=== PATIENT | female | born 2000 | race Caucasian/White ===

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

== ENCOUNTER → 2018-08-31 14:05 | Observation (INO) ==
[2018-08-31 12:56] LABS: Bilirubin,Urine Negative (Negative); Blood,Urine Trace (Negative); Clarity,Urine Cloudy (Clear); Color,Urine Yellow (Yellow); Glucose,Urine (UA) Normal (Normal); Ketones,Urine 15 mg/dL (Negative); Leukocyte Esterase,Urine Moderate (Negative); Nitrite,Urine Negative (Negative); Protein,Urine Negative (Neg-Trace); Specific Gravity,Urine 1.017 (1.010-1.025); Urobilinogen,Urine Normal (Normal)
[2018-08-31 12:58] LABS: Bacteria,Urine Few per hpf (None-Few); Hyaline Casts,Urine Few per lpf (None-Few); Squamous Epithelial Cell,Urine Many per lpf (None-Few); WBC,Urine 30-50 per hpf (0-3)
--- NOTE | 2018-08-31 13:21 | OB/GYN History & Physical ---
Date of Encounter: 08/31/18 Time of Encounter: 13:18 Assessment and Plan (1) 25 weeks gestation of Current visit: Yes Status: Acute (2) premature rupture of membranes (PPROM) with unknown onset of labor Current visit: Yes Status: Acute History of Present Illness Chief complaint: leaking HPI: Ms. Kaminski is a 18 year old female 1 who presents to labor and delivery complaining of leakage of fluid beginning last night. She denies significant for her evette. She states that she had a little bit of leakage and went to bed. This a.m. she continued to leak came in for examination. She is currently 25 weeks and 1 day. On speculum examination she did have fluid in the vaginal vault. She was nitrazine positive and fern positive. This patient was recently admitted into [facility] for labor. She had hourglassing membranes at that time. This did resolve and she was sent home at 23 weeks. She was given steroids at that time. She has been doing well since. She denies cramping or evette. She has allergies to Benadryl. She is currently on vitamins. Chronic medical conditions include type 2 diabetes. Surgical history includes a laparoscopic appendectomy. Socially she denies tobacco, alcohol, illicit drug use. Family history significant for diabetes and heart disease. On presentation speculum exam shows cervix to be approximately 2 cm. Sterile vaginal exam was not performed. heart rate in 140s 150s. No contractions noted on the monitor. I spoke to labor and delivery at [facility]. Dr. Harrison accepted transfer. He did not wish any antibiotic starting this patient was not laboring and they would rather keep track of the number of antibiotics patient gets. She has previously had steroids at 20-23 weeks when she was admitted into [facility] with hourglassing membranes. Past Med Surg Social Fam HX - Past Medical History Medical history: diabetes Additional medical history: DM Type II Psychiatric history: no psych history - Past Surgical History Surgical History: appendectomy - Social History Smoking Status: Never smoker Smokeless Tobacco Status: No Alcohol use: none Drug use: none - Family History Maternal Grandmother Family Member Ethnicity: Non- Living Status: Hx Family Endocrine Disorder: Yes Obstetrical History - Pregnancies : 1 Medications and Allergies Insulin LISPRO [Admelog Solostar] 12 units SQ BID 08/31/18 [History] Novolin R 14 units SQ BID 08/31/18 [History] Caplet 1 tab PO DAILY 08/31/18 [History] Allergy/AdvReac Type Severity Reaction Status Date / Time diphenhydramine Allergy Numbness Verified 06/20/18 09:21 [From Benadryl] Review of System OB All systems PM: reviewed and no additional remarkable complaints except as stated Exam - Constitutional Constitutional: well developed, well nourished, no acute distress, average body habitus - HEENT HEENT: EOMI, PERRL - Neck Neck exam: full ROM - Lungs Respiratory exam: CTAB - Cardiovascular Cardiovascular exam: RRR - Abdomen Abdomen: Present: bowel sounds normal, gravid, non tender - Extremities Extremities exam: full ROM - Vagina Vagina: Present: normal moisture - Cervix Dilation: 2 - Uterus Uterus exam: Present: normal size Results Abnormal lab results Cloudy (Clear) A 08/31/18 12:40 15 mg/dL (Negative) H 08/31/18 12:40 Trace (Negative) H 08/31/18 12:40 Ur Leukocyte Esterase Moderate (Negative) H 08/31/18 12:40 5-15 per hpf (0-3) H 08/31/18 12:40 30-50 per hpf (0-3) H 08/31/18 12:40 Ur Squamous Epith Cells Many per lpf (None-Few) H 08/31/18 12:40 Ur Culture Indicated? YES (NO) A 08/31/18 12:40 All other labs normal. - VTE Reasons for not Prescribing Prophylaxis: Treatment not Indicated - Low risk for VTE
[2018-08-31 13:54] LABS: Candida DNA Not Detected (Not Detect); Gardnerella DNA Not Detected (Not Detect); Trichomonas DNA Not Detected (Not Detect)
[~2018-08-31 14:05] MED LIST: 0.9 % Sodium Chloride 1,000 ML ONE; Lidocaine -MPF 1% 2 ML VIAL ONE
[2018-08-31 14:25] LABS: Amphetamine Screen,Urine Negative ng/mL (Cutoff=1000); Barbiturate Screen,Urine Negative ng/mL (Cutoff=200); Benzodiazepines Screen,Urine Negative ng/mL (Cutoff=200); Cannabinoid Screen,Urine Negative ng/mL (Cutoff = 50); Cocaine Screen,Urine Negative ng/mL (Cutoff= 300); Opiate Screen,Urine Negative ng/mL (Cutoff=300); Phencyclidine Screen,Urine Negative ng/mL (Cutoff=25)
== END | disposition critical access hospital (66) ==
LOC: 1NENULAB
PROVIDERS: ADMIT Registered Nurse; ATTEND Registered Nurse

== ENCOUNTER → 2020-08-12 22:22 | Observation (INO) ==
[2020-08-12 21:08] VITALS: BP 136/82
[2020-08-12 21:25] LABS: Amorphous Sediment,Urine Few per hpf (None-Few); Bacteria,Urine Few per hpf (None-Few); Bilirubin,Urine Negative (Negative); Blood,Urine Small (Negative); Clarity,Urine Clear (Clear); Color,Urine Light-Yellow (Yellow); Glucose,Urine (UA) 150 mg/dL (Normal); Ketones,Urine Negative (Negative); Leukocyte Esterase,Urine Trace (Negative); Mucus,Urine Few per lpf (None-Few); Nitrite,Urine Negative (Negative); Protein,Urine Trace mg/dL (Neg-Trace); RBC,Urine 50-100 per hpf (0-3); Squamous Epithelial Cell,Urine Few per hpf (None-Few); Urobilinogen,Urine Normal (Normal); WBC,Urine 0-3 per hpf (0-3)
== END | disposition home or self-care (01) ==
LOC: 1NENULAB
PROVIDERS: ADMIT Obstetrics & Gynecology; ATTEND Obstetrics & Gynecology

== ENCOUNTER 2020-09-20 17:26 | Observation (INO) ==
[2020-09-20 19:45] LABS: Bacteria,Urine Few per hpf (None-Few); Bilirubin,Urine Negative (Negative); Blood,Urine Small (Negative); Calcium Oxalate Crystals,Urine Present per hpf; Clarity,Urine Turbid (Clear); Color,Urine Yellow (Yellow); Glucose,Urine (UA) Normal (Normal); Ketones,Urine 150 mg/dL (Negative); Leukocyte Esterase,Urine Small (Negative); Mucus,Urine Few per lpf (None-Few); Nitrite,Urine Negative (Negative); PH,Urine 6.5 pH Units (5.0-8.0); Protein,Urine Trace mg/dL (Neg-Trace); RBC,Urine 50-100 per hpf (0-3); Specific Gravity,Urine 1.019 (1.010-1.025); Squamous Epithelial Cell,Urine Few per hpf (None-Few); Urobilinogen,Urine Normal (Normal)
[2020-09-20] MEDS ORDERED: Betamethasone Acet/SodPhos 30 MG/5 ML VIAL IM SCH (19:45)
== END 2020-09-20 19:55 | disposition home or self-care (01) ==
LOC: 1NENULAB
PROVIDERS: ADMIT Advanced Practice Midwife; ATTEND Advanced Practice Midwife

== ENCOUNTER 2020-09-24 13:02 | Observation (INO) ==
[2020-09-24 14:21] LABS: Bacteria,Urine Few per hpf (None-Few); Bilirubin,Urine Negative (Negative); Blood,Urine Small (Negative); Calcium Oxalate Crystals,Urine Present per hpf; Clarity,Urine Turbid (Clear); Color,Urine Yellow (Yellow); Glucose,Urine (UA) 50 mg/dL (Normal); Ketones,Urine Negative (Negative); Leukocyte Esterase,Urine Moderate (Negative); Mucus,Urine Few per lpf (None-Few); Nitrite,Urine Negative (Negative); PH,Urine 6.5 pH Units (5.0-8.0); Protein,Urine 30 mg/dL (Neg-Trace); RBC,Urine 30-50 per hpf (0-3); Specific Gravity,Urine 1.024 (1.010-1.025); Squamous Epithelial Cell,Urine Few per hpf (None-Few); Urobilinogen,Urine Normal (Normal)
[2020-09-24 15:20] LABS: Candida DNA Not Detected (Not Detect); Gardnerella DNA Not Detected (Not Detect); Trichomonas DNA Not Detected (Not Detect)
== END 2020-09-24 17:54 | disposition home or self-care (01) ==
LOC: 1NENULAB
PROVIDERS: ADMIT Registered Nurse; ATTEND Registered Nurse

== ENCOUNTER 2020-10-08 12:00 | Inpatient (IN) ==
[2020-10-08] MEDS ORDERED: Famotidine 20 MG/2 ML VIAL IVP PRN (13:59)
[2020-10-08] MEDS ORDERED: Metoclopramide 10 MG/2 ML VIAL IVP PRN (13:59)
[2020-10-08] MEDS ORDERED: Naloxone 0.4 MG/ML INJ IVP PRN (13:59)
[2020-10-08] MEDS ORDERED: Ondansetron 4 MG/2 ML VIAL IVP PRN (13:59)
[2020-10-08] MEDS ORDERED: Lidocaine 1% 20 ML MDV ID PRN (13:59)
[2020-10-08] MEDS ORDERED: *HR* Nalbuphine 10 MG/ML AMPUL IV PRN (13:59)
[2020-10-08] MEDS ORDERED: Azithromycin 500 MG in 0.9 % Sodium Chloride 250 ML IVPB PRN (13:59)
[2020-10-08] MEDS ORDERED: Ringers Solution, Lactated 1,000 ML IVC SCH (14:00)
[2020-10-08] MEDS ORDERED: Oxytocin 20 units/ LR 1000 mL 20 UNIT/1,000 ML BAG IVC SCH (14:00)
[2020-10-08] MEDS ORDERED: 0.9 % Sodium Chloride 1,000 ML ONE ×2 (14:35→22:33)
[2020-10-08] MEDS ORDERED: 0.9 % Sodium Chloride 1,000 ML IVC ONE (14:35)
[2020-10-08 14:51] LABS: Basophils % 0.2 %; Eosinophils # 0.1 K/mcL (0.0-0.6); Eosinophils % 0.7 %; Hematocrit 38.2 % (35.3-44.9); Immature Granulocytes % 0.4 % (0-4); Lymphocytes # 1.6 K/mcL (0.6-4.6); Lymphocytes % 15.9 %; Mean Corpuscular Hemoglobin 25.7 pg (28.0-33.3); Mean Corpuscular Volume 75.5 fL (83.0-100.0); Mean Platelet Volume 10.9 fL (9.4-12.4); Monocytes # 0.7 K/mcL (0.0-1.3); Monocytes % 7.4 %; Neutrophils # 7.4 K/mcL (1.6-8.9); Platelet Count 199 K/mcL (140-400); Red Blood Count 5.06 M/mcL (3.82-4.97); Red Cell Distribution Width 14.4 % (11.5-14.5); Segmented Neutrophils % 75.4 %; White Blood Count 9.8 K/mcL (4.3-11.1)
[2020-10-08 15:00] LABS: Amphetamine Screen,Urine Negative ng/mL (Cutoff=1000); Barbiturate Screen,Urine Negative ng/mL (Cutoff=200); Benzodiazepines Screen,Urine Negative ng/mL (Cutoff=200); Cannabinoid Screen,Urine Negative ng/mL (Cutoff = 50); Cocaine Screen,Urine Negative ng/mL (Cutoff= 300); Opiate Screen,Urine Negative ng/mL (Cutoff=300); Phencyclidine Screen,Urine Negative ng/mL (Cutoff=25)
[2020-10-08] MEDS ORDERED: 0.9 % Sodium Chloride 1,000 ML IVC SCH (15:30)
[2020-10-08 15:42] LABS: Glucose 119 mg/dL (70-105)
[2020-10-08 16:44] LABS: Alanine Aminotransferase 9 Units/L (7-52); Aspartate Amino Transferase 12 Units/L (13-39); BUN/Creatinine Ratio 24 (6-26); Blood Urea Nitrogen 11 mg/dL (6-20); Lactate Dehydrogenase 136 Units/L (140-271); Uric Acid 3.9 mg/dL (2.3-7.6); eGFR For African Americans > 60 (> 60); eGFR For Non-African Americans > 60 (> 60)
[2020-10-08 17:03] LABS: Protein/Creatinine Ratio,Urine 0.3 mg/mg (0.00-0.20)
[2020-10-08] MEDS ORDERED: *HR* Labetalol 20 MG/4 ML SYRINGE IVP STA (18:54)
[2020-10-08] MEDS ORDERED: *HR* Labetalol 20 MG/4 ML SYRINGE IVP ONE (18:56)
[2020-10-08] MEDS ORDERED: Ropivacaine/PF 0.2% 20 ML VIAL ONE (19:36)
[2020-10-08] MEDS ORDERED: *HR* FentaNYL (PF) 100 MCG/2 ML VIAL ONE ×2 (19:36→21:25)
[2020-10-08] MEDS ORDERED: Epidural Premix (fent/bupiv) 110 ML EP ONE (19:38)
[2020-10-08] MEDS ORDERED: EPHEDrine 50 MG/ML VIAL IVP PRN (20:56)
[2020-10-08] MEDS ORDERED: Ropivacaine/PF 0.2% 20 ML VIAL EP ONE (20:56)
[2020-10-08] MEDS ORDERED: *HR* FentaNYL (PF) 100 MCG/2 ML VIAL EP ONE (20:56)
[2020-10-08] MEDS ORDERED: Epidural Premix (fent/bupiv) 110 ML EP SCH (21:00)
[2020-10-08] MEDS ORDERED: *HR* Ropivacaine/PF 0.5% 20 ML VIAL ONE (21:26)
[2020-10-08] MEDS ORDERED: Famotidine 20 MG/2 ML VIAL IVP ONE (21:54)
[2020-10-08] MEDS ORDERED: Lidocaine/EPI 1:200k 2% PF 20 ML VIAL ONE (23:53)
[2020-10-09] MEDS ORDERED: Measles/Mumps/Rubella Vacc 0.5 ML VIAL SQ PRN (01:41)
[2020-10-09] MEDS ORDERED: Benzocaine/Menthol 56 GM AEROSOL SPRAY TP PRN (01:41)
[2020-10-09] MEDS ORDERED: *HR* HYDROcodone/Acet 5/325 mg TABLET PO PRN (01:41)
[2020-10-09] MEDS ORDERED: Oxytocin 20 units/ LR 1000 mL 20 UNIT/1,000 ML BAG IVC SCH (01:41)
[2020-10-09] MEDS: Ibuprofen 600 MG TABLET PO PRN ×3 (02:05→15:38)
[2020-10-09 05:37] LABS: Basophils % 0.2 %; Hematocrit 31.1 % (35.3-44.9); Immature Granulocytes % 0.3 % (0-4); Lymphocytes % 8.1 %; Mean Corpuscular HGB Conc 34.4 g/dL (31.6-35.5); Mean Corpuscular Hemoglobin 26.2 pg (28.0-33.3); Mean Corpuscular Volume 76.2 fL (83.0-100.0); Mean Platelet Volume 10.8 fL (9.4-12.4); Monocytes # 0.9 K/mcL (0.0-1.3); Monocytes % 7.3 %; Neutrophils # 10.1 K/mcL (1.6-8.9); Platelet Count 155 K/mcL (140-400); Red Blood Count 4.08 M/mcL (3.82-4.97); Red Cell Distribution Width 14.5 % (11.5-14.5); Segmented Neutrophils % 84.1 %; White Blood Count 12.1 K/mcL (4.3-11.1)
[2020-10-09 05:41] LABS: Hemoglobin 10.7 g/dL (11.5-15.4)
[2020-10-09] MEDS: Cyanocobalamin (B-12) 1,000 MCG TABLET PO SCH (08:11)
[2020-10-09] MEDS: Prenatal Vit/FA 1 EACH TABLET PO SCH (08:11)
[2020-10-09] MEDS: cefOXitin 2,000 MG in Water for inj. (sterile) 20 ML IVP SCH ×2 (08:15→21:01)
[2020-10-09] MEDS ORDERED: CefOXitin 2,000 MG VIAL ONE (15:36)
[2020-10-09 17:27] LABS: Basophils % 0.2 %; Eosinophils % 0.2 %; Hematocrit 32.6 % (35.3-44.9); Immature Granulocytes % 0.3 % (0-4); Lymphocytes # 1.4 K/mcL (0.6-4.6); Lymphocytes % 15.4 %; Mean Corpuscular HGB Conc 33.7 g/dL (31.6-35.5); Mean Corpuscular Hemoglobin 25.9 pg (28.0-33.3); Mean Corpuscular Volume 76.7 fL (83.0-100.0); Mean Platelet Volume 10.9 fL (9.4-12.4); Monocytes # 0.8 K/mcL (0.0-1.3); Monocytes % 9.2 %; Neutrophils # 6.9 K/mcL (1.6-8.9); Platelet Count 169 K/mcL (140-400); Red Blood Count 4.25 M/mcL (3.82-4.97); Red Cell Distribution Width 14.6 % (11.5-14.5); Segmented Neutrophils % 74.7 %; White Blood Count 9.2 K/mcL (4.3-11.1)
[2020-10-09] MEDS: Acetaminophen 325 MG TABLET PO PRN (20:39)
[2020-10-09] MEDS ORDERED: *HR* Dextrose 50 % in Water (Vial) 50 ML VIAL IVP PRN (21:23)
[2020-10-09] MEDS ORDERED: D5% in Water 1,000 ML IVC PRN (21:23)
[2020-10-09] MEDS ORDERED: Dextrose Gel 15 GM/37.5 ML TUBE PO PRN ×2 (21:23)
[2020-10-09] MEDS ORDERED: Insulin DETEMIR 100 UNIT/ML X5UNITS SUBQ SCH (21:30)
[2020-10-09] MEDS ORDERED: Insulin LISPRO 300 UNITS/3 ML VIAL SUBQ SCH (21:30)
[2020-10-09 22:34] VITALS: O2SAT 96
[2020-10-10] MEDS: Ibuprofen 600 MG TABLET PO PRN ×2 (02:20→10:53)
[2020-10-10] MEDS: Acetaminophen 325 MG TABLET PO PRN (02:20)
[2020-10-10 07:27] VITALS: BP 136/94; PULSE 76; TEMP 98.2
[2020-10-10] MEDS: Cyanocobalamin (B-12) 1,000 MCG TABLET PO SCH (08:06)
[2020-10-10] MEDS: Prenatal Vit/FA 1 EACH TABLET PO SCH (08:06)
== END 2020-10-10 15:31 | disposition home or self-care (01) | DRG 768 ==
LOC: 1NENULAB 13:47 → 1NENUOBS 10-09 02:47
PROVIDERS: ADMIT Obstetrics & Gynecology; ATTEND Obstetrics & Gynecology